=== PATIENT | female | born 1930 | race Caucasian/White ===

== ENCOUNTER 2016-07-10 14:24 | Observation (INO) | payer OTHER ==
[~2016-07-10] VITALS: Ht 160 cm; Wt 81.2 kg
[2016-07-10 15:53] LABS: HEMOGLOBIN 10.3 gm/dl (12.3-15.3); RED BLOOD COUNT 3.7 M/UL (4.00-5.10); WHITE BLOOD COUNT 9.8 K/UL (4.5-11.0)
[2016-07-10] MEDS ORDERED: LASIX 40 MG TAB40 MG PO (20:44)
[2016-07-10] MEDS ORDERED: XARELTO 10 MG T10 MG PO (20:44)
[2016-07-10] MEDS ORDERED: TOPROL XL 50 MG50 MG PO (20:44)
[2016-07-10] MEDS ORDERED: LORTAB 5-325 M1 EACH PO (20:45)
[2016-07-10] MEDS ORDERED: POTASSIUM CHLO10 ME2 PO (20:46)
[2016-07-10] MEDS ORDERED: ESOMEPRAZOLE MA40 MG PO (20:47)
[2016-07-10] MEDS ORDERED: LISINOPRIL10 MG PO (20:47)
[2016-07-10] MEDS ORDERED: NORVASC 5 MG TAB5 MG PO (20:47)
[2016-07-10] MEDS ORDERED: VITAMIN D31 ML PO (20:48)
[2016-07-10] MEDS ORDERED: SIMVASTATIN40 MG PO (21:02)
[2016-07-10] MEDS ORDERED: ALPRAZOLAM0.5 MG PO (21:45)
[2016-07-11 06:38] LABS: HEMOGLOBIN 9.5 gm/dl (12.3-15.3); RED BLOOD COUNT 3.46 M/UL (4.00-5.10)
[2016-07-12 06:16] LABS: HEMOGLOBIN 9.5 gm/dl (12.3-15.3); RED BLOOD COUNT 3.46 M/UL (4.00-5.10); WHITE BLOOD COUNT 9.6 K/UL (4.5-11.0)
[2016-07-12] MEDS ORDERED: LEVAQUIN500 MG PO (16:43)
[2016-07-12] MEDS ORDERED: ASPIRIN81 MG PO (16:45)
== END 2016-07-12 17:35 | disposition home or self-care (01) ==
LOC: ER1 14:24 → ZEROF 18:48 → MED SURG 4 18:48
PROVIDERS: Physician Assistant; Specialist/Technologist Athletic Trainer; ADMIT Internal Medicine
PROC: 02HK3JZ Insertion of Pacemaker Lead into Right Ventricle, Percutaneous Approach (ICD-10-PCS; principal; 2016-07-10)
PROC: 0JPT0PZ Removal of Cardiac Rhythm Related Device from Trunk Subcutaneous Tissue and Fascia, Open Approach (ICD-10-PCS; principal; 2016-07-10)
PROC: 0JH604Z Insertion of Pacemaker, Single Chamber into Chest Subcutaneous Tissue and Fascia, Open Approach (ICD-10-PCS; principal; 2016-07-10)
PROC: 02PA3MZ Removal of Cardiac Lead from Heart, Percutaneous Approach (ICD-10-PCS; principal; 2016-07-10)
DX: R07.89 Other chest pain (principal); I10 Essential (primary) hypertension; I25.10 Atherosclerotic heart disease of native coronary artery without angina pectoris; D64.9 Anemia, unspecified; E78.5 Hyperlipidemia, unspecified; K21.9 Gastro-esophageal reflux disease without esophagitis; M81.0 Age-related osteoporosis without current pathological fracture; Z86.718 Personal history of other venous thrombosis and embolism; Z87.891 Personal history of nicotine dependence; Z88.0 Allergy status to penicillin; Z88.8 Allergy status to other drugs, medicaments and biological substances; Z79.2 Long term (current) use of antibiotics; Z79.82 Long term (current) use of aspirin; Z79.899 Other long term (current) drug therapy; Z90.710 Acquired absence of both cervix and uterus; Z95.0 Presence of cardiac pacemaker; Z95.1 Presence of aortocoronary bypass graft
CPT/HCPCS: 33207; 33233; 36415; 36600; 70450; 71010; 71250; 80048; 80053; 81001; 82550; 82553; 82803; 83605; 83874; 83880; 84484; 85025; 85027; 85610; 85730; 87040; 87077; 87086; 87186; 93005; 96361; 96374; 96375; 99285; C1785; C1898; G0378; J1644; J1940; J2250; J2405; J3010; J3370; J7030; J7040; J7070; Q9965

== ENCOUNTER → 2016-08-06 | Outpatient (CLI) | payer OTHER ==
[~2016-08-06] MED LIST: ALPRAZOLAM0.5 MG PO; ASPIRIN81 MG PO; ESOMEPRAZOLE MA40 MG PO; LASIX 40 MG TAB40 MG PO; LEVAQUIN500 MG PO; LISINOPRIL10 MG PO; LORTAB 5-325 M1 EACH PO; NORVASC 5 MG TAB5 MG PO; POTASSIUM CHLO10 ME2 PO; SIMVASTATIN40 MG PO; TOPROL XL 50 MG50 MG PO; VITAMIN D31 ML PO; XARELTO 10 MG T10 MG PO
[2016-08-06 11:23] LABS: HEMOGLOBIN 10.1 gm/dl (12.3-15.3); RED BLOOD COUNT 3.75 M/UL (4.00-5.10); WHITE BLOOD COUNT 7.6 K/UL (4.5-11.0)
== END ==
LOC: LAB 10:05
PROVIDERS: Internal Medicine
DX: D64.9 Anemia, unspecified (principal)
CPT/HCPCS: 36415; 85025